=== PATIENT | male | born 1965 | race Caucasian/White ===

== ENCOUNTER 2020-06-06 08:16 | Outpatient (CLI) | payer OTHER, SELFPAY ==
--- NOTE | 2020-06-06 12:00 | NEURO_ITS ---
IMPRESSION: # Complains of tremors and inability to walk. # Normal nerve conduction study including upper and lower extremities, motor and sensory except with polyphasic . responses bilaterally. # Normal needle/EMG exam. # Clinical correlation recommended; question of old axonal injury. Nerve Conduction Studies Anti Sensory Summary Table Stim Site NR Peak (ms) P-T Amp (?V) Site1 Site2 Delta-P (ms) Dist (cm) Surjit (m/s) Left Median Anti Sensory (2-3nd Digit) Wrist 3.3 21.7 Wrist 2-3nd Digit 3.3 14.0 42 Wrist 3.1 31.0 Wrist 2-3nd Digit 3.3 14.0 42 Right Median Anti Sensory (2-3nd Digit) Wrist 3.2 18.4 Wrist 2-3nd Digit 3.2 14.0 44 Wrist 2-3nd Digit 3.2 14.0 44 Left Radial Anti Sensory (Base 1st Digit) Wrist 2.3 21.9 Wrist Base 1st Digit 2.3 0.0 Right Radial Anti Sensory (Base 1st Digit) Wrist 2.9 11.1 Wrist Base 1st Digit 2.9 0.0 Left Sup Fibular Anti Sensory (Ant Lat Mall) 14 cm 3.9 9.1 14 cm Ant Lat Mall 3.9 16.0 41 Right Sup Fibular Anti Sensory (Ant Lat Mall) 14 cm 4.0 7.4 14 cm Ant Lat Mall 4.0 16.0 40 Left Sural Anti Sensory (Lat Mall) Calf 3.4 4.6 Calf Lat Mall 3.4 16.0 47 Right Sural Anti Sensory (Lat Mall) Calf 3.9 11.4 Calf Lat Mall 3.9 16.0 41 Left Ulnar Anti Sensory (5th Digit) Wrist 2.5 40.4 Wrist 5th Digit 2.5 14.0 56 Right Ulnar Anti Sensory (5th Digit) Wrist 2.8 47.0 Wrist 5th Digit 2.8 14.0 50 Motor Summary Table Stim Site NR Onset (ms) O-P Amp (mV) Site1 Site2 Delta-0 (ms) Dist (cm) Surjit (m/s) Left Median Motor (Abd Poll Brev) Wrist 4.3 1.8 Elbow Wrist 4.6 27.0 59 Elbow 8.9 1.8 Right Median Motor (Abd Poll Brev) Wrist 4.4 2.8 Elbow Wrist 4.7 28.0 60 Elbow 9.1 2.3 Left Peroneal Motor (Vastus Med) Ankle 4.9 1.2 Popit Ankle 9.2 39.0 42 Popit 14.1 0.7 Right Peroneal Motor (Vastus Med) Ankle 4.8 0.5 Popit Ankle 8.6 37.0 43 Popit 13.4 0.9 Left Tibial Motor (Abd Garcia Brev) Ankle 4.1 0.9 Knee Ankle 9.3 41.0 44 Knee 13.4 0.9 Right Tibial Motor (Abd Garcia Brev) Ankle 4.4 1.9 Knee Ankle 10.6 44.0 42 Knee 15.0 0.9 Left Ulnar Motor (Abd Dig Minimi) Wrist 2.6 5.3 A Elbow Wrist 4.9 29.0 59 A Elbow 7.5 4.3 Right Ulnar Motor (Abd Dig Minimi) Wrist 2.8 5.8 A Elbow Wrist 5.2 29.0 56 A Elbow 8.0 4.2 F Wave Studies NR F-Lat (ms) L-R F-Lat (ms) Left Median (Mrkrs) (Abd Poll Brev) 29.33 1.37 Right Median (Mrkrs) (Abd Poll Brev) 30.70 1.37 Left Peroneal (Mrkrs) (EDB) 58.24 0.23 Right Peroneal (Mrkrs) (EDB) 58.48 0.23 Left Tibial (Mrkrs) (Abd Hallucis) 58.77 0.06 Right Tibial (Mrkrs) (Abd Hallucis) 58.83 0.06 Left Ulnar (Mrkrs) (Abd Dig Min) 30.66 1.06 Right Ulnar (Mrkrs) (Abd Dig Min) 29.61 1.06 EMG Side Muscle Nerve Root Ins Act Fibs Amp Dur Recrt Comment Right 1stDorInt Ulnar C8-T1 Nml Nml Nml Nml Nml Right Ext Indicis Radial (Post Int) C7-8 Nml Nml Nml Nml Nml Right Ext Digitorum Radial (Post Int) C7-8 Nml Nml Nml Nml Nml Right BrachioRad Radial C5-6 Nml Nml Nml Nml Nml Right PronatorTeres Median C6-7 Nml Nml Nml Nml Nml Right Abd Poll Brev Median C8-T1 Nml Nml Nml Nml Nml Right Ant
== END 2020-06-06 08:17 | disposition home or self-care (01) ==
PROVIDERS: PCP Internal Medicine; Visit Provider Psychiatry & Neurology Neurology
DX: R25.1 Tremor, unspecified (principal)
CPT/HCPCS: 95886; 95913

== ENCOUNTER 2020-09-21 14:21 | Outpatient (CLI) | payer OTHER, SELFPAY ==
--- NOTE | ~2020-09-21 | MR_ITS ---
EXAMINATION: MR brain/brain stem wo/w con DATE: 09/21/2020 16:06 INDICATION: Left leg weakness. Left arm weakness. TECHNIQUE: Magnetic resonance imaging (MRI) of the brain and brainstem was performed with 20 cc Multi Katey intravenous contrast. Sequences included sagittal and axial T1-weighted SE, axial diffusion-kell ghted FS SE, axial T2*-weighted GRE, axial T2-weighted FLAIR Propeller, and axial T2-weighted Propell er. Apparent diffusion coefficient (ADC) maps were created. COMPARISON: CT brain dated 01/20/2019. FINDINGS: Normal brain parenchymal volume. There is mild cerebellar atrophy. Normal bear-white differ entiation. No acute infarction or intracranial hemorrhage. No abnormal masses or contrast enhancement . Structures of the posterior fossa including 7/8th cranial nerve complexes are normal. Orbits are sy mmetric without disconjugate gaze. Paranasal sinuses and mastoids are pneumatized. Midline sagittal i mages are unremarkable. IMPRESSION: 1. Mild cerebellar atrophy. Otherwise, unremarkable MRI of the brain. Reviewed, dictated and finalized at location A.
[2020-09-21 15:33] LABS: Estimated Glomerular Filt Rate > 60
== END 2020-09-21 14:22 | disposition home or self-care (01) ==
PROVIDERS: PCP Internal Medicine; Visit Provider Internal Medicine
DX: R29.898 Other symptoms and signs involving the musculoskeletal system (principal); G31.89 Other specified degenerative diseases of nervous system
CPT/HCPCS: 70553; A9577

== ENCOUNTER 2021-01-24 06:21 | Emergency (ER) | payer OTHER, SELFPAY ==
[2021-01-24] VITALS (14 sets, daily range): BP systolic 125–168; BP diastolic 91–113; PULSE 91–131; RESP 17–25; TEMP 36.4–36.8; O2SAT 94–99
--- NOTE | ~2021-01-24 | XR_ITS ---
EXAMINATION: XR shoulder RT min 2V EXAM DATE: 01/24/2021 06:38 INDICATION: fall - injury, deformity. TECHNIQUE: 2 orthogonal projections right shoulder. Comparison is made to prior examination from 12/31. FINDINGS: There is complete anterior inferior humeral head dislocation. Sliver-like ossific density inferior to the acromion, possible avulsion type fracture, or could be calcific tendinosis. No radiop aque foreign bodies identified. The soft tissue is unremarkable. There is mild glenohumeral joint, mi ld to moderate acromioclavicular joint primary osteoarthritis. IMPRESSION: 1. Anterior inferior humeral dislocation. 2. Glenoid avulsion fracture versus rotator cuff calcific tendinosis. Reviewed, dictated and finalized at location A.
--- NOTE | ~2021-01-24 | XR_ITS ---
EXAMINATION: XR shoulder RT min 2V DATE: 01/24/2021 08:20 INDICATION: Reduction right shoulder dislocation TECHNIQUE: AP internally and externally rotated, AP oblique externally rotated and transscapular Y vi ews of the right shoulder were obtained. COMPARISON: 01/24/2021 and 01/21/2019 FINDINGS: Successful reduction of previously dislocated right glenohumeral joint. Chronic Hill-Sachs fracture t rough along the posterolateral aspect of the humeral head. The fracture trough appears deeper than on the study from 2 years prior suggesting possibility of recurrent impaction fracture. A couple old la teral right rib fractures. No other fractures identified. As previously no Bankart fracture along the anteroinferior rim of the glenoid. Round lucencies at the humeral head and metallic buttons along th e proximal diaphysis of the right humerus consistent with likely prior rotator cuff repair and bicipi regina tenodesis. There is some heterotopic ossification along the rim of the acromion as well as at the posterior aspect of the greater tuberosity likely related to prior trauma and/or surgery. There is m ild nonuniformity to the glenohumeral joint space primarily due to slight cephalad subluxation of the humeral head likely related to rotator cuff disease rather than osteoarthritis. Mild acromioclavicul ar osteoarthritis. Right lung is clear. IMPRESSION: 1. Successful reduction of previously dislocated right glenohumeral joint. 2. Chronic Hill-Sachs fracture deformity at the humeral head which appears more prominent than on the study 2 years prior suggesting possibility of recurrent impaction fracture. 3. Postoperative changes of prior right rotator cuff repair and bicipital tenodesis. Slight cephalad subluxation of the humeral head with respect to the glenoid suggests possibility of residual or recur rent rotator cuff tear. Reviewed, dictated and finalized at location B. IMPRESSION: 1. Successful reduction of previously dislocated right glenohumeral joint. 2. Chronic Hill-Sachs fracture deformity at the humeral head which appears more prominent than on the study 2 years prior suggesting possibility of recurrent impaction fracture. 3. Postoperative changes of prior right rotator cuff repair and bicipital tenod esis. Slight cephalad subluxation of the humeral head with respect to the gleno id suggests possibility of residual or recurrent rotator cuff tear.
[2021-01-24] MEDS: KETOROLAC 30 MG/ML VIAL (*BKC) IV PUSH (06:36)
--- NOTE | 2021-01-24 07:29 | PC.NURSE ---
Assumed care of pt. at this time. Report from JANE Raya
[2021-01-24] MEDS: ONDANSETRON INJ 4 MG/2 ML VIAL IV PUSH (07:34)
[2021-01-24] MEDS: HYDROmorphone HCL INJ (*CRX) 1 MG/ML SYR 0.5 MG IV PUSH (07:35)
--- NOTE | 2021-01-24 07:57 | PC.NURSE ---
20 mg etomidate administered IVP ERP Instructions
--- NOTE | 2021-01-24 08:00 | PC.NURSE ---
Additional 10 mg etomidate administered IVP
--- NOTE | 2021-01-24 08:05 | PC.NURSE ---
10 mg etomidate administered IVP
--- NOTE | 2021-01-24 08:14 | ED.UPPEXIN ---
HPI - Extremity Injury (Upper) General Chief Complaint: Extremity Injury, Upper Stated Complaint: right shoulder dislocation Time Seen by Provider: 01/24/21 07:33 Source: patient History of Present Illness HPI narrative: Patient presents with right shoulder pain after tripping over his dog in the kitchen prior to arrival to the emergency room. Complaining of right shoulder pain, denies other injuries Related Data Home Medications Medication Instructions Recorded Confirmed carbidopa-levodopa tablet 01/24/21 clonidine HCl 01/24/21 Allergies Allergy/AdvReac Type Severity Reaction Status Date / Time alprazolam Allergy Unknown Other Verified 01/24/21 06:35 Review of Systems Review of Systems: CONSTITUTIONAL: Denies fever, chills, or sweats. EYES: Denies visual changes, redness, or discharge. ENT: Denies rhinorrhea, congestion, sore throat, or otalgia. CARDIOVASCULAR: Denies chest pain, palpitations, or edema. RESPIRATORY: Denies cough or dyspnea. GASTROINTESTINAL: Denies abdominal pain, nausea, vomiting, or diarrhea. GENITOURINARY: Denies dysuria or hematuria. SKIN: Denies rash or itching. MUSCULOSKELETAL: Denies back pain, joint pain, or myalgia. NEUROLOGIC: Denies headache, numbness, or weakness. PSYCHIATRIC: Denies anxiety or depression. Exam Narrative: General appearance: Well-developed, well-nourished Skin: Normal color Head: Normocephalic, nontraumatic Eyes: Clear conjunctiva ENT: Oropharynx normal, ears normal, nose normal Neck: Supple, nontender Chest and respiratory: Airway patent, no respiratory distress, no accessory muscle use Heart: Regular rate/rhythm Abdomen: Soft, nontender, no organomegaly, quiet bowel sounds Vascular: Normal peripheral pulses, normal capillary refill. 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, no gross motor deficit Course Course Emergency Course: Stable Vital Signs Vital signs: Vital Signs Temperature 36.8 C 01/24/21 06:24 Pulse Rate 113 H 01/24/21 06:24 Respiratory Rate 20 01/24/21 06:24 Blood Pressure 168/113 H 01/24/21 06:24 Pulse Oximetry 96 01/24/21 06:24 Temperature 36.8 C 01/24/21 08:45 Pulse Rate 114 H 01/24/21 08:45 Respiratory Rate 21 H 01/24/21 08:45 Blood Pressure 125/91 H 01/24/21 08:45 Pulse Oximetry 94 01/24/21 08:45 Procedures Orthopedic Joint Reduction Joint #1: Orthopedic Joint Reduction Date: 01/24/21 Orthopedic Joint Reduction Time: 08:17 Time Out Performed: Yes (15 minutes) Side: right Joint Reduction Location: shoulder Analgesia: procedural sedation Pre-Procedure Neuro Vascular Exam: normal Amount of anesthesic used (mL): 40 Shoulder Technique Used (if applicable): external rotation Technique used: direct manipulation Post-reduction neuro exam: intact Post-reduction vascular: intact Post Reduction X-Ray Obtained: Yes Post Reduction X-Ray Results: reduced Splint Applied: Yes Patient Tolerated Procedure: well MDM - Extremity Injury (Upper) MDM Narrative Medical decision making narrative: Shoulder dislocation, fracture is my concern. Differential Diagnosis Differential diagnosis: Likely dislocation of shoulder, fracture of humerus and fracture of clavicle Imaging Data Radiologist's impression: Impressions Shoulder X-Ray 01/24/21 06:47 IMPRESSION: 1. Anterior inferior humeral dislocation. 2. Glenoid avulsion fracture versus rotator cuff calcific tendinosis. Shoulder X-Ray 01/24/21 08:21 IMPRESSION:
--- NOTE | 2021-01-24 08:57 | PC.NURSE ---
0757 RN pushed 20 mg etomidate Per ERP instructions.
== END 2021-01-24 09:35 | disposition home or self-care (01) ==
PROVIDERS: Emergency Provider Emergency Medicine; PCP Internal Medicine
DX: S43.014A Anterior dislocation of right humerus, initial encounter (principal); S43.034A Inferior dislocation of right humerus, initial encounter; W01.0XXA Fall on same level from slipping, tripping and stumbling without subsequent striking against object, initial encounter
CPT/HCPCS: 23650; 73030; 96374; 96375; 99285; J1170; J1885; J2405

== ENCOUNTER 2021-03-30 09:50 | Emergency (ER) | payer OTHER, SELFPAY ==
[2021-03-30] VITALS (10 sets, daily range): BP systolic 135–163; BP diastolic 88–112; PULSE 107–113; RESP 18–28; TEMP 36.7–36.8; O2SAT 94–98
--- NOTE | ~2021-03-30 | XR_ITS ---
EXAMINATION: XR shoulder RT min 2V EXAM DATE: 03/30/2021 12:59 INDICATION: post-reduction . TECHNIQUE: Frontal and lateral projections of the right shoulder. Comparison is made to prior examin ation from earlier same date. FINDINGS: Persistent right humeral anterior inferior shoulder dislocation. IMPRESSION: Persistent anterior inferior shoulder dislocation. Reviewed, dictated and finalized at location A.
--- NOTE | ~2021-03-30 | XR_ITS ---
XR shoulder RT min 2V 03/30/2021 16:31 Indication: Post reduction Procedure: 3 views right shoulder Comparison: Comparison to multiple prior studies sequentially, with oldest reviewed study dated 01/24. Findings: Interval reduction of the right glenohumeral joint. There is a Hill-Sachs fracture deformit y with ossific densities lateral to the humerus, likely fracture fragments. Acromioclavicular joint i ntact. Impression: 1: Anatomic alignment of the right glenohumeral joint post reduction. 2: Hill-Sachs fracture deformity of the humeral head, likely chronic. Reviewed, dictated and finalized at location A. Impression: 1: Anatomic alignment of the right glenohumeral joint post reduction. 2: Hill-Sachs fracture deformity of the humeral head, likely chronic.
--- NOTE | ~2021-03-30 | XR_ITS ---
EXAMINATION: XR shoulder RT min 2V EXAM DATE: 03/30/2021 10:20 INDICATION: right shoulder pain, recent dislocation. TECHNIQUE: The following right shoulder projections obtained: frontal projection with internal rotati on, frontal projection with external rotation, Grashey, and scapular Y view (4+ views). Comparison is made to prior examination from 01/24/2021. FINDINGS: Patient has redislocated the right humerus, anterior and inferior to the glenoid. There cou ld be a corresponding Hill-Sachs deformity, compression fracture of the humeral head. There are old r ight 5th through 7th rib fractures laterally. There is moderate right shoulder primary osteoarthritis . IMPRESSION: 1. Anterior inferior right humeral dislocation. 2. Possible acute and/or chronic Hill-Sachs compression. Reviewed, dictated and finalized at location A.
--- NOTE | ~2021-03-30 | CT_ITS ---
EXAMINATION: CT shoulder RT wo con EXAM DATE: 03/30/2021 13:01 INDICATION: right shoulder dislocation. TECHNIQUE: Spiral CT shoulder RT was performed without contrast. Axial, coronal and sagittal image s were reviewed. The dose-length product (DLP) for this examination was 495.22 mGy-cm. The exposure was tailored according to patient size (auto mA exposure control), and iterative reconstruction (ASI R) was used as additional dose reduction technique. Correlation is made to x-ray earlier same date. FINDINGS: The right humeral head is anteriorly inferiorly dislocated. There is a Hill-Sachs deformity , impaction fracture which appears to be chronic deformity. There are no acute fractures identified. There is moderate acromioclavicular and glenohumeral joint osteoarthritis. There are scattered calc ifications adjacent to the humeral head, glenoid, joint capsule which appear well-corticated, chronic . There is an orthopedic repair anchor in the humeral neck. There is a shoulder joint effusion. No ri ght upper rib fracture. IMPRESSION: 1. Right shoulder anterior inferior dislocation. Joint effusion. 2. Chronic Hill-Sachs deformity and other findings. Reviewed, dictated and finalized at location A.
--- NOTE | 2021-03-30 10:33 | ED.EXTPRO ---
HPI - Extremity Problem General Chief complaint: Extremity Problem,Nontraumatic <Vale Vasquez PA-C - Last Filed: 03/30/21 17:39> Stated complaint: right shoulder pain <SANDOR Godfrey Last Filed: 03/30/21 17:39> Time Seen by Provider: 03/30/21 10:08 <SANDOR Godfrey Last Filed: 03/30/21 17:39> Source: patient <SANDOR Godfrey Last Filed: 03/30/21 17:39> Mode of arrival: ambulatory <SANDOR Godfrey Last Filed: 03/30/21 17:39> Limitations: no limitations <SANDOR Godfrey Last Filed: 03/30/21 17:39> History of Present Illness HPI Narrative: This is a 55-year-old male that presents to the emergency department for right shoulder pain present since 2 this morning. Does not know of any certain injury. Reports when he woke up he had a lot of pain in the shoulder. Reports the pain makes it difficult for him to move the shoulder. Reports he recently dislocated the right shoulder. This feels similar. Denies numbness. <SANDOR Godfrey Last Filed: 03/30/21 17:39> Related Data Home medications: Home Medications Medication Instructions Recorded Confirmed carbidopa-levodopa tablet 01/24/21 clonidine HCl 01/24/21 <SANDOR Godfrey Last Filed: 03/30/21 17:39> Allergies/Adverse reactions: Allergies Allergy/AdvReac Type Severity Reaction Status Date / Time alprazolam Allergy Unknown Other Verified 01/24/21 06:35 <SANDOR Godfrey Last Filed: 03/30/21 17:39> Review of Systems Review of Systems: CONSTITUTIONAL: Denies fever MUSCULOSKELETAL: Reports joint pain, and myalgia. NEUROLOGIC: Denies numbness <SANDOR Godfrey Last Filed: 03/30/21 17:39> All systems reviewed & are unremarkable except as noted in HPI and below <SANDOR Godfrey Last Filed: 03/30/21 17:39> [facility] Past Medical History Medical History: Medical History History of hypertension History of Parkinson's disease <Vale Vasquez PA-C - Last Filed: 03/30/21 17:39> Social History Social History: Social History Substance use: never <Vale Vasquez PA-C - Last Filed: 03/30/21 17:39> Exam Narrative: GENERAL: Well-appearing, well-nourished, and in no acute distress. HEAD: Normocephalic, atraumatic. EYES: EOMI. CHEST: Clear to auscultation. No respiratory distress. No wheezes rales or rhonchi HEART: Regular rate and rhythm. No murmur heard. Normal peripheral pulses. EXTREMITIES: Decreased active range of motion of the right shoulder with obvious deformity. Normal radial pulses. Normal sensation SKIN: Warm, dry, no rash. NEURO: No focal deficits. Alert and oriented x3. PSYCH: Normal mood and affect <Vale Vasquez PA-C - Last Filed: 03/30/21 17:39> Course CLASSROOM TEACHER/PA Physician Supervision I saw and evaluated the patient my self patient had a shoulder dislocation all attempts at manual reduction performed which were unsuccessful procedure was performed with pain control as well as procedural sedation. After multiple unsuccessful attempts orthopedic team was consulted discussed in the PAs note. Patient's upper extremity remained neurovascular intact throughout his examination he had no complications from his sedation. Ortho was consulted who was able to reduce the shoulder and patient was discharged home. <Parish Rosado MD - Last Filed: 03/30/21 18:35> Consultations Consultation #1: Spoke with Dr. Gonsales about patient and workup. Recommends CT scan of the shoulder. Will come to the ER to reduce the shoulder <Vale Vasquez PA-C - Last Filed: 03/30/21 17:39> Date: 03/30/21 <Vale Vasquez PA-C - Last Filed: 03/30/21 17:39> Time: 15:00 <Vale Vasquez PA-C - Last Filed: 03/30/21 17:39> Vital Signs Vital signs: Vital Signs Pulse Rate 107 H 03/30/21 09:59 Resp
[2021-03-30] MEDS: fentaNYL CITRATE INJ (*CRX) 100 MCG/2 ML VIAL 50 MCG IV PUSH (10:42)
[2021-03-30] MEDS: fentaNYL CITRATE INJ (*CRX) 100 MCG/2 ML VIAL IV PUSH (11:15)
--- NOTE | 2021-03-30 11:35 | PC.NURSE ---
Propofol administered by Alonzo PADILLA
--- NOTE | 2021-03-30 12:07 | PC.NURSE ---
This RN into room to scan pts propofol. Upon scanning the screen states that medication does not exist for pt. Had charge nurse Meagan into room to verify and try to scan. Same message was given. Meagan informed this nurse to give medication and to send empty bottle to Yareli Roldan
[2021-03-30] MEDS: MORPHINE SULFATE (*CRX) 4 MG/ML INJ IV PUSH (13:46)
[2021-03-30] MEDS: KETOROLAC 30 MG/ML VIAL (*BKC) IV PUSH (15:12)
--- NOTE | 2021-03-30 16:02 | PC.NURSE ---
Orthopedic here to speak with pt.
--- NOTE | 2021-03-30 16:05 | WPDANESEPP ---
Anes - Eval Pre Procedure Procedure: Clpsed Reduction Right Shoulder Date/Time: 03/30/21 16:27 Surgeon: Una Preop Diagnosis: Right shoulder dislocation Pre Op Diagnosis: right shoulder pain Patient Data Age: 55 Gender: M Height: 1.83 m Weight: 97.5 kg Last Vital Signs Temp 36.8 C 03/30/21 12:05 Pulse 108 H 03/30/21 15:15 Resp 18 03/30/21 15:15 BP 163/97 H 03/30/21 15:15 Pulse Ox 94 03/30/21 15:15 Allergies Allergy/AdvReac Type Severity Reaction Status Date / Time alprazolam Allergy Unknown Other Verified 01/24/21 06:35 Home Medications Medication Instructions Recorded Confirmed Type carbidopa-levodopa tablet 01/24/21 History clonidine HCl 01/24/21 History hydrocodone-acetaminophen 1 tablet PO DAILY #14 tablet 01/24/21 Rx naproxen [Naprosyn] 500 mg PO BID PRN #14 tablet 01/24/21 Rx Patient hx anesthesia problems: none Family hx anesthesia problems: none Results Review: All pre-operative results and documents have been reviewed as part of the pre-operative evaluation. [facility] Past Medical History Medical History History of hypertension History of Parkinson's disease Social History Social History Substance use: never Exam Day of Procedure 03/30/21 16:27 Patient weight: overweight Heart: tachycardia Lungs: normal air movement Airway: Mallampati scale class II Neurological: alert and oriented
--- NOTE | 2021-03-30 16:15 | PC.NURSE ---
anaesthesia here for pt. This RN pulled 250 of NS but DID NOT administer. Anaesthesia did.
--- NOTE | 2021-03-30 16:33 | PM.CNOR ---
Assessment and Plan Additional Plan 65 year old male with Right Shoulder dislocation x2. First was 4 wks ago successfully reduced. Right Shoulder RCR 2 years ago. I consulted with the Anesthesia team for more aggressive anesthesia. The Right Shoulder was successfully reduced at the bedside. The patient was comfortable and will be discharged to home with a shoulder immobilizer. He will stay in this shoulder immobilizer for 10 days. He is to sleep with the immobilizer. I will see him in follow up in my office in [place]. We will start physical therapy after I see the patient in follow up. History of Present Illness HPI Consult date: 03/30/21 Consult reason: joint pain Chief complaint: right shoulder pain Narrative: 65 year old male s/p Right Shoulder RCR by Dr Álvarez in [place] 2 yrs ago after Work Related Injury. Only history of dislocation was 4 wks ago after a fall. He was seen here in [facility] and successfully reduced. He woke up this morning to urinate. While sitting at the side of his bed, he felt Right Shoulder pain and was not able to move his Right arm. He presented to the ER here at [facility] and has undergone 3 attempts at closed reduction. Xrays and CT scan were performed post reduction that showed persistent dislocation anterior and inferior. No fractures were noted. [facility] Past Medical History Medical History History of hypertension History of Parkinson's disease Social History Social History Substance use: never Meds Home Medications and Allergies Home Medications Medication Instructions Recorded Confirmed Type carbidopa-levodopa tablet 01/24/21 History clonidine HCl 01/24/21 History hydrocodone-acetaminophen 1 tablet PO DAILY #14 tablet 01/24/21 Rx naproxen [Naprosyn] 500 mg PO BID PRN #14 tablet 01/24/21 Rx Allergies Allergy/AdvReac Type Severity Reaction Status Date / Time alprazolam Allergy Unknown Other Verified 01/24/21 06:35 Vital Signs Vital Signs - 24 hr 03/30/21 09:59 03/30/21 11:30 03/30/21 11:35 Temperature 36.8 C 36.8 C Pulse Rate 107 H Pulse Rate [Right Monitor] 107 H 113 H Respiratory Rate 24 H 26 H 23 H Blood Pressure 151/112 H Blood Pressure [Left Arm] 151/112 H 156/101 H Pulse Oximetry 95 96 95 03/30/21 11:40 03/30/21 11:45 03/30/21 11:50 Temperature 36.8 C 36.8 C 36.7 C Pulse Rate Pulse Rate [Right Monitor] 111 H 111 H 109 H Respiratory Rate 26 H 28 H 18 Blood Pressure Blood Pressure [Left Arm] 145/105 H 139/96 H 152/104 H Pulse Oximetry 98 97 94 03/30/21 11:55 03/30/21 12:00 03/30/21 12:05 Temperature 36.7 C 36.7 C 36.8 C Pulse Rate Pulse Rate [Right Monitor] 108 H 108 H 108 H Respiratory Rate 20 18 18 Blood Pressure Blood Pressure [Left Arm] 145/96 H 135/88 135/88 Pulse Oximetry 96 96 96 03/30/21 15:15 Temperature Pulse Rate 108 H Pulse Rate [Right Monitor] Respiratory Rate 18 Blood Pressure 163/97 H Blood Pressure [Left Arm] Pulse Oximetry 94 Exam Narrative: Awake and alert on physical exam. Right shoulder was held in the abducted and external position. He had a palpable radial pulse, good sensation to this extremity. No tenderness to palpation over the wrist or the elbow. Results Labs Labs: All other labs normal.
--- NOTE | 2021-03-30 16:44 | P.OP_ITS ---
Procedure Note - Detailed Date of Procedure 03/30/21 Pre-op Diagnosis right shoulder glenohumeral dislocation Post-op Diagnosis same Procedure Performed Right Shoulder closed reduction with General Anesthesia Surgeon Timbo Gonsales MD Indications Right Shoulder dislocation Findings Right Shoulder Anterior Inferior dislocation Description of Procedure After consultation with anesthesia, the patient underwent General anesthesia with propofol. The Right Shoulder was again examined and noted to have decrease range of motion. Traction and external/internal rotation was performed... a palpable clunk was noticed. Post reduction xrays were performed that showed a reduced glenohumeral joint. No fractures Examination of the shoulder showed a good radial pulse. Complications None Condition stable Disposition other (Discharge to home and follow up with Dr Gonsales in [place] [phone])
== END 2021-03-30 17:39 | disposition home or self-care (01) ==
PROVIDERS: Emergency Provider Emergency Medicine; PCP Internal Medicine
DX: M24.411 Recurrent dislocation, right shoulder (principal); I10 Essential (primary) hypertension; G20 Parkinson's disease
CPT/HCPCS: 23650; 23655; 36569; 73030; 73200; 96374; 96375; 99285; J0131; J1885; J2270; J2704; J3010; J7050